=== PATIENT | male | born 1970 | race Asian ===

== ENCOUNTER 2022-05-17 11:18 | Emergency (ER) | payer MEDICAID ==
[~2022-05-17] VITALS: Ht 167.6 cm; Wt 99.5 kg
[~2022-05-17 11:18] MED LIST: ALBU1.252 IH; ALBU17AE27 IH
[2022-05-17] MEDS ORDERED: FLUT1BLS13 IH (11:26)
[2022-05-17] MEDS ORDERED: OSIM80TA PO (11:26)
[2022-05-17] MEDS ORDERED: ALBU18HF12 IH (11:26)
[2022-05-17] MEDS ORDERED: DEXA2TAB PO (11:26)
[2022-05-17] MEDS ORDERED: BENZ100C68 PO (11:26)
[2022-05-17] MEDS ORDERED: FOLI-130 PO (11:26)
[2022-05-17] MEDS ORDERED: DEXAMETHASONE SOD PHOS 4 MG/ML 5 ML VIAL IVP ONE (12:45)
[2022-05-17 13:05] LABS: BASOPHILS % (AUTO) 0.4 % (0.0-2.0); EOSINOPHILS % (AUTO) 1.5 % (1.0-6.0); HEMATOCRIT 38.4 % (41-53); HEMOGLOBIN 12.7 g/dL (13.5-17.5); LYMPHOCYTES # (AUTO) 1.3 K/uL (1.0-4.8); LYMPHOCYTES % (AUTO) 15.7 % (22.0-44.0); MEAN CORPUSCULAR HEMOGLOBIN 31.2 pg (26.0-34.0); MEAN CORPUSCULAR HGB CONC 33.2 G/dL (31.0-37.0); MEAN CORPUSCULAR VOLUME 94 fL (80-100); MONOCYTES # (AUTO) 1.4 K/uL (0.1-1.0); MONOCYTES % (AUTO) 16.9 % (2.0-9.0); NEUTROPHILS # (AUTO) 5.3 K/uL (1.8-7.7); NEUTROPHILS % (AUTO) 65.5 % (40.0-70.0); PLATELET COUNT (AUTO) 269 K/uL (150-450); RED BLOOD CELL COUNT(AUTO) 4.09 MIL/uL (4.50-5.90); RED CELL DISTRIBUTION WIDTH 19.8 % (11.5-14.5)
[2022-05-17 13:15] LABS: ANION GAP 8 mmol/L (8-16); CALCIUM, TOTAL 8.6 mg/dL (8.8-10.5); CARBON DIOXIDE 26 mmol/L (22-29); CHLORIDE 101 mmol/L (98-107); CREATININE 1.16 mg/dL (0.60-1.30); GLOMERULAR FILTR. RATE CALC > 60 mL/min (>60); GLUCOSE,RANDOM 115 mg/dL (70-110); POTASSIUM 3.4 mmol/L (3.5-5.1); SODIUM SERUM 135 mmol/L (136-145); UREA NITROGEN, BLOOD 11 mg/dL (7-18)
[2022-05-17] MEDS ORDERED: SODIUM CHLORIDE 0.9% 100 ML ONE (13:22)
[2022-05-17] MEDS ORDERED: IOHEXOL 350 MG/ML 100 ML VIAL ONE (13:22)
[2022-05-17] MEDS ORDERED: IPRATROPIUM BROMIDE 0.5 MG/2.5 ML NEB SOLUTION NEB ONE (14:15)
[2022-05-17] MEDS ORDERED: ALBUTEROL SULFATE 2.5 MG/0.5 ML NEB SOLUTION NEB ONE (14:15)
[2022-05-17 14:52] VITALS: BP 118/79
[2022-05-17] MEDS ORDERED: AZIT250T9 PO (15:05)
[2022-05-17] MEDS ORDERED: CefTRIAXone 1 GM/DEXTROSE 50 ML IV ONE (15:15)
== END 2022-05-17 16:19 | disposition home or self-care (01) ==
LOC: EMS 11:19
DX: J45.901 Unspecified asthma with (acute) exacerbation (principal); C79.31 Secondary malignant neoplasm of brain; I10 Essential (primary) hypertension
CPT/HCPCS: 99285; 96365; 71275; 71045; 96375; 80048; 85025; 36415; 94640; 93005; J0696; J1100; Q9967; J7050; J7613

== ENCOUNTER 2024-11-02 07:10 | Emergency (ER) | payer MEDICAID ==
[~2024-11-02] VITALS: Ht 165.1 cm; Wt 99.1 kg
[~2024-11-02 07:10] MED LIST changes: -ALBU1.252 IH; -ALBU17AE27 IH; +ALBU18HF12 IH; +BENZ100C68 PO; +DEXA2TAB PO; +FLUT1BLS13 IH; +FOLI-130 PO; +OSIM80TA PO
[2024-11-02] MEDS: KETOROLAC TROMETHAMINE 30 MG/ML VIAL IM ONE (08:51)
[2024-11-02 09:01] LABS: PLATELET COUNT (AUTO) 299 K/uL (150-450); RED BLOOD CELL COUNT(AUTO) 5.73 MIL/uL (4.50-5.90); RED CELL DISTRIBUTION WIDTH 14.2 % (11.5-14.5); WHITE BLOOD COUNT (AUTO) 8.5 K/uL (4.5-11.0)
[2024-11-02 09:05] LABS: CALCIUM, TOTAL 9.1 mg/dL (8.8-10.5); CREATININE 1.16 mg/dL (0.60-1.30); GLOMERULAR FILTR. RATE CALC > 60 mL/min (>60); GLUCOSE,RANDOM 107 mg/dL (70-110); SODIUM SERUM 137 mmol/L (136-145); UREA NITROGEN, BLOOD 14 mg/dL (7-18)
[2024-11-02 09:22] LABS: APPEARANCE,URINE CLEAR (CLEAR); GLUCOSE, URINE (UA) NEGATIVE (NEGATIVE); LEUKOCYTE ESTERASE ,URINE NEGATIVE (NEGATIVE); NITRATE,URINE NEGATIVE (NEGATIVE); OCCULT BLOOD,URINE NEGATIVE (NEGATIVE); SPECIFIC GRAVITIY, URINE 1.019 (1.003-1.030)
[2024-11-02 10:15] VITALS: BP 140/77; PULSE 99; RESP 18; TEMP 98.1; O2SAT 98
[2024-11-02] MEDS ORDERED: TRAM50TA5 PO (10:27)
== END 2024-11-02 10:53 | disposition home or self-care (01) ==
LOC: EMS 07:10
DX: M54.42 Lumbago with sciatica, left side (principal); G89.29 Other chronic pain; R39.11 Hesitancy of micturition; R20.2 Paresthesia of skin; J45.909 Unspecified asthma, uncomplicated; Z86.79 Personal history of other diseases of the circulatory system; Z79.51 Long term (current) use of inhaled steroids; Z79.52 Long term (current) use of systemic steroids; Z85.118 Personal history of other malignant neoplasm of bronchus and lung; Z85.841 Personal history of malignant neoplasm of brain; Z79.899 Other long term (current) drug therapy
CPT/HCPCS: 99285; 72131; 80048; 81003; 85025; 36415; 74176; 96372; J1885

== ENCOUNTER 2024-12-10 06:50 | Emergency (ER) | payer MEDICAID ==
[~2024-12-10] VITALS: Ht 167.6 cm; Wt 100.0 kg
[~2024-12-10 06:50] MED LIST changes: +TRAM50TA5 PO
[2024-12-10 06:57] VITALS: BP 143/101; PULSE 95; RESP 16; TEMP 98.3; O2SAT 98
[2024-12-10] MEDS: KETOROLAC TROMETHAMINE 30 MG/ML VIAL IM ONE (07:29)
[2024-12-10] MEDS: ACETAMINOPHEN 500 MG TABLET PO ONE (07:29)
[2024-12-10] MEDS: LIDOCAINE 5% TRANSDERMAL PATCH TD ONE (07:30)
[2024-12-10] MEDS ORDERED: DIAZ-328 PO (07:33)
[2024-12-10] MEDS ORDERED: IBUP-1492 PO (07:33)
[2024-12-10] MEDS ORDERED: OXYC5 PO (07:33)
[2024-12-10] MEDS ORDERED: LIDO-57 TP (07:33)
[2024-12-10] MEDS ORDERED: ACET-3385 PO (07:33)
[2024-12-11] MEDS ORDERED: METH4TAB3 PO (05:12)
== END 2024-12-10 07:46 | disposition home or self-care (01) ==
LOC: EMS 06:50
DX: M54.16 Radiculopathy, lumbar region (principal); J45.909 Unspecified asthma, uncomplicated; Z79.51 Long term (current) use of inhaled steroids; Z79.52 Long term (current) use of systemic steroids; Z85.118 Personal history of other malignant neoplasm of bronchus and lung; Z91.199 Patient's noncompliance with other medical treatment and regimen due to unspecified reason
CPT/HCPCS: 99283; 96372; J1885

== ENCOUNTER 2024-12-11 03:02 | Emergency (ER) | payer MEDICAID ==
[~2024-12-11] VITALS: Ht 167.6 cm; Wt 100.5 kg
[~2024-12-11 03:02] MED LIST changes: +ACET-3385 PO; +DIAZ-328 PO; +IBUP-1492 PO; +LIDO-57 TP; +OXYC5 PO
[2024-12-11] MEDS ORDERED: METH4TAB3 PO (05:12)
[2024-12-11] MEDS: DEXAMETHASONE SOD PHOS 4 MG/ML 5 ML VIAL IM ONE (05:15)
[2024-12-11] MEDS: KETOROLAC TROMETHAMINE 60 MG/2 ML VIAL IM ONE (05:15)
[2024-12-11 05:30] VITALS: BP 141/83; PULSE 89; RESP 18; TEMP 98.3; O2SAT 98
== END 2024-12-11 06:06 | disposition home or self-care (01) ==
LOC: EMS 03:02
DX: M54.42 Lumbago with sciatica, left side (principal); J45.909 Unspecified asthma, uncomplicated; Z85.118 Personal history of other malignant neoplasm of bronchus and lung; Z79.51 Long term (current) use of inhaled steroids; Z79.52 Long term (current) use of systemic steroids; Z79.899 Other long term (current) drug therapy
CPT/HCPCS: 99284; 96372; J1885; J1100

== ENCOUNTER 2025-01-21 07:13 | Emergency (ER) | payer MEDICAID ==
[~2025-01-21] VITALS: Ht 167.6 cm; Wt 102.3 kg
[~2025-01-21 07:13] MED LIST changes: +METH4TAB3 PO
[2025-01-21 07:23] VITALS: TEMP 98.2
[2025-01-21] MEDS: LIDOCAINE 5% TRANSDERMAL PATCH TD ONE (08:18)
[2025-01-21] MEDS: DEXAMETHASONE SOD PHOS 4 MG/ML 5 ML VIAL IM ONE (08:18)
[2025-01-21] MEDS: KETOROLAC TROMETHAMINE 30 MG/ML VIAL IM ONE (08:18)
[2025-01-21 08:50] VITALS: BP 126/78; PULSE 78; RESP 18; O2SAT 99
[2025-01-21] MEDS ORDERED: GABA-1181 PO (09:26)
[2025-01-21] MEDS ORDERED: LIDO-57 TP (09:26)
== END 2025-01-21 09:59 | disposition home or self-care (01) ==
LOC: EMS 07:13
DX: G89.29 Other chronic pain (principal); M54.50 Low back pain, unspecified; J45.909 Unspecified asthma, uncomplicated; Z85.118 Personal history of other malignant neoplasm of bronchus and lung; Z92.21 Personal history of antineoplastic chemotherapy; Z79.51 Long term (current) use of inhaled steroids; Z79.52 Long term (current) use of systemic steroids; Z79.899 Other long term (current) drug therapy
CPT/HCPCS: 99284; 96372; J1885; J1100